=== PATIENT | female | born 2000 | race Caucasian/White ===

== ENCOUNTER 2021-09-17 12:43 | Outpatient (REF) | payer MEDICAID, SELFPAY ==
--- NOTE | 2021-09-17 11:00 | PAPFT_PTH ---
PATIENT: Kelsie Knapp LOC: [facility] U#:[id number] AGE/SX: 20/F ROOM: RE09/17/[address]: Minnie Lo : 2000 BED: DIS: 09/17/2021 SPEC #: [id number] RECD: 09/17/21 17:32 STATUS: ROBERTA RERodrigue #: [id number] ALIA: 09/17/21 11:[address]: Minnie Gomez DEPT: [facility] Cytology RECD BY: Ricarda Sanchez ENTERED: 09/17/21 17:33 SP TYPE: PAPFT OTHR DR: Rodrigo Mistry Tissues: 1 - CX/ENDOCX FOR PAP SMEARS Procedures: PAP THIN PREP/[facility] Screening Comments: [id number]
== END 2021-09-17 12:44 | disposition home or self-care (01) ==
LOC: NCHCN 12:43
PROVIDERS: PCP Internal Medicine; Visit Provider Nurse Practitioner Family
DX: Z12.4 Encounter for screening for malignant neoplasm of cervix (principal); Z00.00 Encounter for general adult medical examination without abnormal findings
CPT/HCPCS: 88142